=== PATIENT | male | born 2000 | race African-American/Black ===

== ENCOUNTER 2022-07-30 20:25 | Emergency (ER) | payer SELFPAY ==
[2022-07-30 21:19] LABS: Mean Corpuscular HGB CONC 35.1 g/dL (32.0-36.0); Mean Corpuscular Hemoglobin 33.6 pg (27.0-31.0); Mean Corpuscular Volume 95.5 fl (78.0-98.0); Mean Platelet Volume 7.5 fL (7.4-10.4); Platelet Count 145 10x3/uL (130-400); RBC Distribution Width 10.8 % (11.5-14.5); Red Blood Cell (RBC) Count 4.46 mill/uL (4.70-6.10); White Blood Cell (WBC) Count 2.2 10x3/uL (4.8-10.8)
[2022-07-30 21:38] LABS: ALT (SGPT) 44 U/L (8-55); AST (SGOT) 48 U/L (5-34); Albumin 4.4 g/dL (3.5-5.0); Alkaline Phosphatase 51 U/L (40-110); Anion Gap 16 mmol/L (10-20); BUN (Urea Nitrogen) 17 mg/dL (8.9-20.6); Bilirubin, Total 0.3 mg/dL (0.2-1.2); Calc. Creatinine Clearance 0 mL/min (70-130); Calcium 8.6 mg/dL (7.8-10.44); Carbon Dioxide 23 mmol/L (22-29); Chloride 104 mmol/L (98-107); Estimated GFR 72; Glucose 125 mg/dL (70-105); Potassium 3.8 mmol/L (3.5-5.1); Protein, Total 7.4 g/dL (6.0-8.3); Sodium 139 mmol/L (136-145)
[2022-07-30 21:41] LABS: Band 8 % (5-11); Lymphocytes 31 % (21-51); MDiff Complete? YES; Monocytes 15 % (0-10); Neutrophil 46 % (42-75)
[2022-07-30 22:23] LABS: Bacteria/HPF None Seen HPF (None Seen); Bilirubin Negative (Negative); Blood, Urine Negative (Negative); Clarity Clear (Clear); Glucose, Urine (Dipstick) Normal (Negative); Ketone, Urine Trace mg/dL (Negative); Leukocyte Negative Leu/uL (Negative); Nitrite Negative (Negative); Protein, Urine (Dipstick) 70 mg/dL (Neg-Trace); RBC/HPF 0-3 HPF (0-3); Specific Gravity, Urine 1.041 (1.002-1.036); Squamous Epithelial 0-3 HPF (0-3)
[2022-07-30 22:56] LABS: SARS-CoV-2 NAA Rapid Test Not Detected (NotDetected)
[2022-07-30] MEDS ORDERED: cefTRIAXone\\ROCEPHIN 1 GM VIAL ONE (23:19)
[2022-07-31 03:14] LABS: HIV (1/2) Antibody/Antigen Reflxed Confirmation (NonReactive); HIV 1/2 INDEX 6.59 S/CO (<1.00)
[2022-07-31 10:21] LABS: Chlam.trachomatis by PCR,Urine Not Detected (NotDetected)
== END 2022-07-30 23:51 | disposition home or self-care (01) ==
LOC: ERS 20:25
DX: N34.1 Nonspecific urethritis (principal); Z20.822 Contact with and (suspected) exposure to COVID-19
CPT/HCPCS: 36415; 71045; 76870; 80053; 81003; 81015; 83605; 85025; 86701; 86702; 87040; 87086; 87389; 87491; 87591; 93976; 96372; J0696